=== PATIENT | male | born 2000 | race Caucasian/White ===

== ENCOUNTER 2019-10-27 17:50 | Emergency (ER) | payer SELFPAY ==
[2019-10-27] MEDS ORDERED: Meclizine 25 MG Tab PO ONE (17:51)
--- NOTE | 2019-10-27 18:35 | EDM.PDOC ---
ED HPI GENERAL MEDICAL PROBLEM - General Chief Complaint: General Stated Complaint: DIZZY Time Seen by Provider: 10/27/19 18:35 Source of Information: Reports: Patient History Limitations: Reports: No Limitations - History of Present Illness INITIAL COMMENTS - FREE TEXT/NARRATIVE: Carlos is a 18 yo male with dizziness since yesterday. He describes it as spinning.No nausea or fever. no headache. ED ROS GENERAL - Review of Systems Review Of Systems: Comprehensive ROS is negative, except as noted in HPI. ED EXAM, GENERAL - Physical Exam Exam: See Below Exam Limited By: No Limitations General Appearance: Alert, WD/WN, No Apparent Distress Ears: Normal External Exam Ear Exam: Bilateral Ear: Auricle Normal, Canal Normal, TM normal Nose: Normal Inspection, Normal Mucosa, No Blood Throat/Mouth: Normal Inspection, Normal Lips, Normal Teeth, Normal Gums, Normal Oropharynx, Normal Voice, No Airway Compromise Head: Atraumatic, Normocephalic Neck: Normal Inspection, Supple, Non-Tender, Full Range of Motion Respiratory/Chest: No Respiratory Distress, Lungs Clear, Normal Breath Sounds, No Accessory Muscle Use, Chest Non-Tender Psychiatric: Normal Affect Skin Exam: Warm Course - Vital Signs Last Recorded V/S: Last Vital Signs Temp 98.1 F 10/27/19 18:25 Pulse 79 10/27/19 18:25 Resp 17 10/27/19 18:25 BP 144/69 H 10/27/19 18:25 Pulse Ox 98 10/27/19 18:25 Departure - Departure Time of Disposition: 18:35 Disposition: Home, Self-Care 01 Condition: Good Clinical Impression: Vertigo - Discharge Information Instructions: Benign Positional Vertigo Referrals: PCP,None [Primary Care Provider] - Forms: ED Department Discharge Additional Instructions: Establish a Primary Care Provider where you can follow up on Tuesday. Take the Meclizine 1 tablet 3 times a day for dizziness. May call if you have any questions or comeback to the Emergency Room if your symptoms get worse. Sepsis Event Note (ED) - Evaluation Sepsis Screening Result: No Definite Risk - Focused Exam Vital Signs: Vital Signs Temp Pulse Resp BP Pulse Ox 10/27/19 18:25 98.1 F 79 17 144/69 H 98 - Problem List & Annotations (1) Vertigo SNOMED Code(s): 824917871 Code(s): R42 - DIZZINESS AND GIDDINESS Status: Acute Current Visit: No - Problem List Review Problem List Initiated/Reviewed/Updated: Yes - Assessment/Plan Plan: Meclizine 25 mg tid prn.Follow up next week.Consider Antonietta maneuvers by PT or Chiropractic manipulation
== END 2019-10-27 18:48 | disposition home or self-care (01) ==
LOC: FB.ED 17:50
DX: R42 Dizziness and giddiness (principal)
CPT/HCPCS: 99283; A9270